=== PATIENT | female | born 1975 | race Caucasian/White ===

== ENCOUNTER 2017-03-26 22:57 | Emergency (ER) | payer SELFPAY ==
--- NOTE | ~2017-03-26 | ER ---
PATIENT'S NAME: HILARY LEYVA [facility] AGE: 42 Y [address] ROOM: [place] [id number] LOCATION: ED ADMIT DATE: 03/26/2017 ER/Outpatient Report DISCHARGE DATE: 03/27/2017 FAMILY PHYSICIAN: Billy Hubbard MD ATTENDING PHYSICIAN: Malcom Dunham CHIEF COMPLAINT: Headache. HISTORY OF PRESENT ILLNESS: Ms. Leyva feels like she is having a migraine. She has a history of migraine headaches. It has been a long time since she has had one this bad. She states that this one started around 9 p.m. It does not radiate anywhere other than pressure in the front of her head that radiates down over the top. The symptoms have been present and worsening slowly over the time since onset. She denies thunderclap onset. She has some photophobia associated with this as she usually does, but denies any true neck pain or stiffness. She has tried some Tylenol with no improvement. PAST MEDICAL HISTORY: As documented on the record, have been reviewed by me. SOCIAL HISTORY: As documented on the record, have been reviewed by me. MEDICATIONS: As documented on the record, have been reviewed by me. ALLERGIES: DOCUMENTED ON THE RECORD, HAVE BEEN REVIEWED BY ME. REVIEW OF SYSTEMS: All systems were reviewed and negative except as noted in the HPI. PHYSICAL EXAMINATION: VITAL SIGNS: Blood pressure 122/79, pulse is 75, respiratory rate is 18, temperature 98 degrees, SpO2 is 96% on room air. Pain 7/10. GENERAL: Age-appropriate female, recumbent on exam table, dark room, no apparent pain or distress. Clearly uncomfortable. NEUROLOGIC: Awake and alert. GCS 15. No focal deficits. No asymmetry. HEENT: Normocephalic, atraumatic. Eyes are PERRL. Oropharynx is clear. The patient is edentulous. NECK: Supple. Trachea is midline. CHEST: Heart is regular rate and rhythm with no murmurs. LUNGS: Clear to auscultation bilateral. PATIENT'S NAME: HILARY LEYVA [facility] AGE: 42 Y [address] ROOM: [place], [place] [id number] LOCATION: ED ADMIT DATE: 03/26/2017 ER/Outpatient Report DISCHARGE DATE: 03/27/2017 FAMILY PHYSICIAN: Billy Hubbard MD ATTENDING PHYSICIAN: Malcom Dunham ABDOMEN: Soft, nontender, and nondistended. No rebound or guarding. BACK: Normal to inspection and palpation. No CVA or spinal tenderness. EXTREMITIES: Warm and well perfused. SKIN: Grossly intact. DIAGNOSTIC DATA: Labs and x-rays none. IMPRESSION: Migraine type headache. EMERGENCY DEPARTMENT COURSE: The patient was seen and evaluated as above. This is not consistent with meningitis or subarachnoid hemorrhage. She was treated with fluids, Compazine, Benadryl, and Toradol. She had complete resolution of her headache. She received approximately 500 mL of fluid. She declined to stay for the remainder. She is to follow up with her primary care provider as needed for recurrent issues with her headache. All questions answered and the patient was discharged in good condition. MD REVA READ/modl /[id number] d: 03/27/17 0404 t: 03/28/17 1253, OUTPATIENT REPORT
== END 2017-03-27 01:12 | disposition disaster alternative care site (69) ==
LOC: GMED 22:57
DX: G43.909 Migraine, unspecified, not intractable, without status migrainosus (principal); Z88.0 Allergy status to penicillin
CPT/HCPCS: J0780; J1200; J1885; J7030